=== PATIENT | female | born 1960 | race Caucasian/White ===

== ENCOUNTER → 2018-04-18 | Outpatient (CLI) | payer BC, OTHER ==
[~2018-04-18] VITALS: Ht 167.6 cm; Wt 117.9 kg
[~2018-04-18] MED LIST: ALLEGRA ALLERG180 MG PO; BENICAR40 MG PO; MOBIC15 MG PO; NASONEX17 GM NASAL; NEURONTIN100 MG PO; NEXIUM40 MG PO; PROZAC20 M1 PO; SINGULAIR 10 MG10 M1 PO; SKELAXIN 800 M800 M1 PO; SUDAFED 12 HOU120 MG PO; TRAMADOL 50 MG50 MG PO
--- NOTE | ~2018-04-18 | HPC ---
[facility] [address] [place] [address] PAIN MANAGEMENT CONSULTATION Name: ROME HARRIS V [facility] [id number] Admission: 04/18/18 Attend Phys: Bacilio Mohr MD Discharge: Date of : 60 Report #: [id number] THIS REPORT FOR: //name// CC: Bacilio Casas MD DATE OF SERVICE: 04/18/2018 CHIEF COMPLAINT: Return of pain in the left arm and neck. Things went well for the last 2 years. FOLLOWUP HISTORY: The patient is a 58-year-old female who has a history of cervical radiculopathy. She was seen in the past and underwent a cervical epidural steroid injection. She noticed that her pain did quite well over the past 2 years. She is experiencing pain similar to that in the past and is radiating down into her left arm and her neck. Notes some changes in her fingers. She has experienced a tingling, stabbing and shooting discomfort and rates it as a 6/10. Pain is exacerbated with movement and activity. Feels that tramadol is somewhat helpful in decreasing her pain and discomfort. She is having some difficulties performing activities of daily living. States that she continues to do activities, which were provided to her a couple of years ago. She would like to "had this pain off before it becomes more problematic." She has been taking Mobic. ALLERGIES: No known drug allergies. CURRENT MEDICATIONS: Benicar 40 mg, Singulair 10 mg, Prozac 20 mg, Nexium 40 mg, Mobic 15 mg, Nasonex 2 sprays Silvia 180 mg. PAST MEDICAL HISTORY: Gastritis associated with use of nonsteroidal anti-inflammatory medications, osteoarthritis, bilateral knee replacements in 2013. SOCIAL HISTORY: Denies use of tobacco. 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 PAIN CLINIC ASSESSMENT: 1. History of osteoarthritis involving both knees. 2. Height 5 feet 6 inches, weight 260 pounds, BMI 42. 3. Vital signs: Blood pressure 152/86, pulse 82, respiratory rate 16, room air saturation 98%. 3. Pain intensity 04/08. 4. Fall risk. The patient has not fallen in the last 3 months. 5. Blood thinner. The patient is not on a blood thinning medication. 6. Hypertension. The patient [place] [address] PAIN MANAGEMENT CONSULTATION Name: ROME HARRIS V Room #: REG [facility]#: [id number] Admission: 04/18/18 Attend Phys: Bacilio Morh MD Discharge: Date of : 60 Report #: [id number] 7. Opioid therapy greater than 6 weeks. The patient is not on an opioid contract. 8. Risk assessment tool. 9. Functional assessment tool. 10. Recreational drug use. The patient denies use of recreational drugs. 11. Tobacco: The patient denies use of tobacco. 12. Alcohol: The patient denies use of alcoholic beverages. PHYSICAL EXAMINATION: GENERAL: The patient is a well-developed, well-nourished white female. She is alert and oriented x 3. Affect is appropriate. HEENT: Normocephalic, atraumatic. Extraocular eye muscles intact. Hearing within normal limits. Sclerae nonicteric. NECK: Without JVD or adenopathy. Notes some increased pain with rotation of her neck with pain down into the left arm with numbness, tingling into her fingers in the C6-C7 distribution. CHEST: Clear to auscultation. HEART: Regular rate. ABDOMEN: Protuberant. MUSCULOSKELETAL: Without significant scoliosis, kyphosis or lordosis. Lower extremity muscle strength is judged to be 5/5 for the major muscle groups. Muscle bulk in the lower extremities within normal limits without significant sensory changes. LABORATORY DATA: MRI history indicates cervical facet arthropathy at C5-C6, small broad-based bulging disk, effacing the ventral surface of the CSF, but not the cord at C6-C7. There is facet hypertrophy and arthropathy at this level. There is foraminal narrowing at C5-C6 consistent with C6 distribution radiculopathy on the left. RECOMMENDATIONS: We discussed treatment options with the patient. Risks and benefits of an epidural steroid injection were again discussed. They include, but are not limited to infection, increased muscle soreness, headaches, worsening of pain, no improvement in pain or worsening of pain. She elects to proceed. PROCEDURE NOTE: The patient was taken to the fluoroscopy area. She was assisted in getting on the fluoroscopy table. Her neck was sterilely prepped with a Betadine solution, which was allowed to dry. Fluoroscopy using anterior, posterior as well as lateral viewing was instituted to place the needle in the left C7-T1 interspace in the paracentral area. A total of 2 mL of 0.25% bupivacaine was infiltrated into this area. A 17-gauge Tuohy with loss of resistance technique was used to gain access to the epidural space. There was no CSF, heme or paresthesia. A total of 120 mg triamcinolone was injected. The patient tolerated the procedure well. There were no complications. She remained in the pain clinic for an appropriate amount of time. Her pain [facility] [address] [place] [address] PAIN MANAGEMENT CONSULTATION Name: ROME HARRIS V Room #: REG [facility]#: [id number] Admission: 04/18/18 Attend Phys: Bacilio Mohr MD Discharge: Date of : 60 Report #: [id number] decreased from 6 to 3 at the time of discharge. A total of 11 seconds fluoroscopy time was used. She will follow up in the future as needed. We would like to thank you for letting us participate in her care. We hope she continues to improve. <ELECTRONICALLY SIGNED> By: Bacilio Mohr MD 04/20/18 [id number] Bacilio Mohr MD /PMT
[2018-04-18 10:09] VITALS: BP 152/86
== END | disposition home or self-care (01) ==
LOC: PAIN 07:46
DX: M54.12 Radiculopathy, cervical region (principal); M17.0 Bilateral primary osteoarthritis of knee; Z96.653 Presence of artificial knee joint, bilateral; Z79.899 Other long term (current) drug therapy; Z98.890 Other specified postprocedural states